=== PATIENT | female | born 1960 | race Caucasian/White ===

== ENCOUNTER → 2021-06-14 | Day surgery (SDC) | payer OTHER ==
[~2021-06-14] VITALS: Ht 162.6 cm; Wt 61.3 kg
[~2021-06-14] MED LIST: ASCORBIC ACID500 MG PO; ASPIRIN EC81 MG PO; B12-FOLIC ACID1 EACH PO; COLACE100 MG PO; MULTI FOR HER1 EACH PO; OCUVITE EYE HE1 EACH PO; ROSUVASTATIN CA10 MG PO; VITAMIN D3400 UNI2 PO
== END | disposition home or self-care (01) ==
LOC: FAS 06:25
DX: Z12.11 Encounter for screening for malignant neoplasm of colon (principal); Z80.0 Family history of malignant neoplasm of digestive organs; Z86.010 Personal history of colon polyps; K63.5 Polyp of colon; K62.1 Rectal polyp; K21.9 Gastro-esophageal reflux disease without esophagitis; E78.00 Pure hypercholesterolemia, unspecified; M81.0 Age-related osteoporosis without current pathological fracture; Z98.51 Tubal ligation status; K64.8 Other hemorrhoids
CPT/HCPCS: J2704; J7120

== ENCOUNTER 2022-04-11 10:41 | Emergency (ER) | payer OTHER ==
[2022-04-11] MEDS ORDERED: NORCO 5/3251 EACH PO (11:22)
== END 2022-04-11 12:08 | disposition home or self-care (01) ==
LOC: FER 10:41
DX: S82.832A Other fracture of upper and lower end of left fibula, initial encounter for closed fracture (principal); W17.81XA Fall down embankment (hill), initial encounter; Y92.009 Unspecified place in unspecified non-institutional (private) residence as the place of occurrence of the external cause
CPT/HCPCS: 73610

== ENCOUNTER → 2022-04-15 | Day surgery (SDC) | payer OTHER ==
[~2022-04-15] VITALS: Ht 162.6 cm; Wt 63.5 kg
[~2022-04-15] MED LIST changes: +NORCO 5/3251 EACH PO
[2022-04-15 11:27] LABS: BILIRUBIN - TOTAL 0.7 mg/dL (0.2-1.0); BUN/CREAT RATIO (CALC) 15.5 RATIO; CREATININE 0.71 mg/dL (0.51-0.95); GLOBULIN (CALCULATION) 3.9 g/dL; POTASSIUM 3.9 mmol/L (3.5-5.1); TOTAL PROTEIN 7.9 g/dL (6.4-8.2)
[2022-04-15 11:50] LABS: HCT 39.2 % (37.0-47.0); HGB 12.6 g/dl (12.5-16.0); MCH 29.2 pg (25.0-31.0); MCHC 32.1 g/dL (32.0-36.0); RBC 4.31 M/uL (4.20-5.40); RDW 13.3 % (11.5-14.0); WBC 7.1 K/uL (4.0-10.5)
== END | disposition home or self-care (01) ==
LOC: FAS 10:28
PROVIDERS: Orthopaedic Surgery
DX: S82.492A Other fracture of shaft of left fibula, initial encounter for closed fracture (principal); S82.892A Other fracture of left lower leg, initial encounter for closed fracture; W19.XXXA Unspecified fall, initial encounter; Z79.82 Long term (current) use of aspirin; Z79.899 Other long term (current) drug therapy
CPT/HCPCS: 36415; 73600; 76000; 80053; C1713; J0690; J0735; J1100; J1170; J1885; J2250; J2405; J2550; J2704; J2795; J7120